=== PATIENT | female | born 1995 | race Caucasian/White ===

== ENCOUNTER 2016-10-19 08:29 | Day surgery (SDC) | payer MEDICAID ==
[2016-10-19] MEDS ORDERED: ONDANSETRON 4 MG/2 ML VIAL IVP ONE (09:02)
[2016-10-19] MEDS ORDERED: NS 1,000 ML IV ONE (09:02)
[2016-10-19] MEDS ORDERED: fentaNYL 100 MCG/2 ML INJ IVP ONE (09:02)
--- NOTE | 2016-10-19 09:05 | EDPHY ---
H & P Time Seen by Provider: 10/19/16 08:46 HPI/ROS: CHIEF COMPLAINT: Abdominal pain HISTORY OF PRESENT ILLNESS: Patient had some back pain yesterday but that is an ongoing problem for her and it did not seem out of the ordinary to her. She awakened at 4:00 a.m. with severe right lower quadrant abdominal pain associated with nausea but no vomiting. No vaginal or urinary symptoms. Does not radiate. Worse when she bends over to try and put her shoes on and off. Symptoms severe in the emergency department. She has never had abdominal surgery before. REVIEW OF SYSTEMS: Eye: no change in vision ENT: no sore throat Cardiac: no chest pain or syncope Pulmonary: no cough or SOB Abdomen: Little bit of diarrhea yesterday, see HPI Musculoskeletal: Exacerbation of her ongoing back pain yesterday but no weakness or numbness in extremities. Skin: no rash Neuro: no headache Constitutional: no fever : no urinary symptoms A comprehensive 10 point review of systems is otherwise negative aside from elements mentioned in the history of present illness. PAST MEDICAL HISTORY: Back pain as above Social history: Return from [facility] 1 month ago General Appearance: Alert and conversant, cooperative. Eyes: No scleral icterus. ENT, Mouth: Normal mucous membranes. Respiratory: Normal respiratory effort, breath sounds equal, lungs are clear to auscultation. Cardiovascular: Regular rate and rhythm. Gastrointestinal: Right lower quadrant tenderness with guarding. Bowel sounds present but decreased. Neurological: Alert and oriented x3. Normally conversant. Face symmetric, normal movement and sensation in all extremities. Skin: Warm and dry, no rashes. Musculoskeletal: No peripheral edema and no joint swelling. Psychiatric: Not agitated. Emergency Department course/MDM: Fentanyl 100 mcg IV and Zofran 4 mg IV, ultrasound to evaluate right ovary versus appendix. 1010: Positive ultrasound for appendicitis per Dr. Bryson; discussed with Dr. Olegario Johnson who will admit the patient. Results discussed with the patient at this time. IV Invanz 1 g. Smoking Status: Never smoked Constitutional: Initial Vital Signs Temperature (C) 36.6 C 10/19/16 08:46 Heart Rate 106 H 10/19/16 08:46 Respiratory Rate 18 10/19/16 08:46 Blood Pressure 130/9 H 10/19/16 08:46 O2 Sat (%) 96 10/19/16 08:46 O2 Delivery Mode Room Air Allergies/Adverse Reactions: No Known Allergies Allergy (Unverified 08/01/12 09:45) Home Medications: Medication Instructions Recorded Multivitamins [Multivitamin (*)] 1 each PO DAILY 10/19/16 Medical Decision Making - Diagnostics Imaging Results: Imaging Impressions Abdomen Ultrasound 10/19/16 09:03 Impression: Acute appendicitis. Findings and recommendations discussed with Tod Herrera at 10:00 a.m. on October 19, 2016. Final report concurs with initial preliminary interpretation. Differential Diagnosis: Differential considered including but not limited to ectopic , ovarian torsion, ovarian cyst, appendicitis. - Data Points Laboratory Results: Laboratory Results 10/19/16 08:55 10/19/16 08:55 10/19/16 10/19/16 10/19/16 09:03 08:55 08:55 WBC 15.68 10^3/uL H 10^3/uL (3.80-9.50) RBC 4.50 10^6/uL 10^6/uL (4.18-5.33) Hgb 15.5 g/dL g/dL (12.6-16.3) Hct 43.0 % % (38.0-47.0) MCV 95.6 fL fL (81.5-99.8) MCH 34.4 pg H pg (27.9-34.1) MCHC 36.0 g/dL g/dL (32.4-36.7) RDW 12.4 % % (11.5-15.2) Plt Count 226 10^3/uL 10^3/uL (150-400) MPV 8.7 fL fL (8.7-11.7) Neut % (Auto) 84.1 % H % (39.3-74.2) Lymph % (Auto) 8.9 % L % (15.0-45.0) [place] % (Auto) 5.8 % % (4.5-13.0) Eos % (Auto) 0.4 % L % (0.6-7.6) Baso % (Auto) 0.4 % % (0.3-1.7) Nucleat RBC Rel Count 0.0 % % (0.0-0.2) Absolute Neuts (auto) 13.17 10^3/uL H 10^3/uL (1.70-6.50) Absolute Lymphs (auto) 1.40 10^3/uL 10^3/uL (1.00-3.00) Absolute Monos (auto) 0.91 10^3/uL H 10^3/uL (0.30-0.80) Absolute Eos (auto) 0.06 10^3/uL 10^3/uL (0.03-0.40) Absolute Basos (auto) 0.07 10^3/uL 10^3/uL (0.02-0.10) Absolute Nucleated RBC 0.00 10^3/uL 10^3/uL (0-0.01) Immature Gran % 0.4 % % (0.0-1.1) Immature Gran # 0.07 10^3/uL 10^3/uL (0.00-0.10) Sodium 139 mEq/L mEq/L (134-144) Potassium 4.0 mEq/L mEq/L (3.5-5.2) Chloride 106 mEq/L mEq/L (97-110) Carbon Dioxide 18 mEq/l L mEq/l (22-31) Anion Gap 15 mEq/L mEq/L (8-16) BUN 13 mg/dL mg/dL (7-23) Creatinine 0.8 mg/dL mg/dL (0.6-1.0) Estimated GFR > 60 Glucose 98 mg/dL mg/dL (70-100) Calcium 10.2 mg/dL mg/dL (8.5-10.4) Beta HCG, Qual NEGATIVE Medications Given: Discontinued Medications Fentanyl (Sublimaze) 100 mcg IVP EDNOW ONE Stop: 10/19/16 09:03 Last Admin: 10/19/16 09:07 Dose: 100 mcg Fentanyl (Sublimaze) 50 - 100 mcg IVP Q5M PRN PRN Reason: PACU, Immediate Severe Pain Stop: 10/19/16 14:31 Last Admin: 10/19/16 14:43 Dose: 50 mcg Sodium Chloride (Ns) 1,000 mls @ 0 mls/hr IV EDNOW ONE; Wide Open PRN Reason: Protocol Stop: 10/19/16 09:03 Last Admin: 10/19/16 09:08 Dose: 1,000 mls Ertapenem 1 gm/ Sodium (Chloride) 100 mls @ 200 mls/hr IV EDNOW ONE PRN Reason: Protocol Stop: 10/19/16 10:44 Last Admin: 10/19/16 10:33 Dose: 100 mls Lactated Ringer's (Lr) 1,000 mls @ 0 mls/hr IV ONCE ONE PRN Reason: Per Protocol Stop: 10/19/16 11:21 Last Admin: 10/19/16 11:30 Dose: 1,000 mls Ondansetron HCl (Zofran) 4 mg IVP EDNOW ONE Stop: 10/19/16 09:03 Last Admin: 10/19/16 09:07 Dose: 4 mg Departure - Departure Disposition: [facility] Inpatient Acute Clinical Impression: Acute appendicitis Qualifiers: Acute appendicitis type: with localized peritonitis Qualified Code(s): K35.3 - Acute appendicitis with localized peritonitis Condition: Good
[2016-10-19 09:10] LABS: % IMMATURE GRANULYOCYTES 0.4 % (0.0-1.1); ABSOLUTE IMMATURE GRANULOCYTES 0.07 10^3/uL (0.00-0.10); ADD DIFF? NO; ADD MORPH? NO; ADD SCAN? NO; ATYPICAL LYMPHOCYTE FLAG 0 (0-99); FRAGMENT RBC FLAG 0 (0-99); HEMOGLOBIN 15.5 g/dL (12.6-16.3); LEFT SHIFT FLG 0 (0-99); LIPEMIA HEMOLYSIS FLAG 90 (0-99); MEAN CELL HEMOGLOBIN 34.4 pg (27.9-34.1); MEAN CELL VOLUME 95.6 fL (81.5-99.8); MEAN PLATELET VOLUME 8.7 fL (8.7-11.7); PLATELET CLUMPS FLAG 0 (0-99); PLATELET COUNT 226 10^3/uL (150-400); RED CELL DISTRIBUTION WIDTH 12.4 % (11.5-15.2)
[2016-10-19 09:26] LABS: ANION GAP 15 mEq/L (8-16); CALCIUM 10.2 mg/dL (8.5-10.4); CARBON DIOXIDE 18 mEq/l (22-31); CHLORIDE 106 mEq/L (97-110); CREATININE 0.8 mg/dL (0.6-1.0); GLOMERULAR FILTRATION RATE > 60; GLUCOSE 98 mg/dL (70-100); SODIUM 139 mEq/L (134-144)
[2016-10-19] MEDS ORDERED: ERTAPENEM 1 GM in NS 100 ML IV ONE (10:15)
[2016-10-19] MEDS ORDERED: LR 1,000 ML IV ONE (11:20)
--- NOTE | 2016-10-19 11:43 | PDANEPAE ---
ANE History of Present Illness acute appendicitis ANE Past Medical History - Cardiovascular History Hx Hypertension: No Hx Arrhythmias: No Hx Chest Pain: No Hx Coronary Artery / Peripheral Vascular Disease: No Hx CHF / Valvular Disease: No Hx Palpitations: No - Pulmonary History Hx COPD: No Hx Asthma/Reactive Airway Disease: No Hx Recent Upper Respiratory Infection: No Hx Oxygen in Use at Home: No Hx Sleep Apnea: No - Neurologic History Hx Cerebrovascular Accident: No Hx Seizures: No Hx Dementia: No - Endocrine History Hx Diabetes: No Hypothyroid: No Hyperthyroid: No Obesity: no - Renal History Hx Renal Disorders: No - Liver History Hx Hepatic Disorders: No - Cancer History Hx Cancer: No - Congenital Disorder History Hx Congenital Disorders: No - Chronic Pain History Chronic Pain: No ANE Patient History - Allergies Allergies/Adverse Reactions: No Known Allergies Allergy (Unverified 08/01/12 09:45) - Home Medications Home Medications: Multivitamins [Multivitamin (*)] 1 each PO DAILY 10/19/16 [Last Taken Unknown] - NPO status NPO Since - Liquids (Date): 10/19/16 NPO Since - Liquids (Time): 06:00 NPO Since - Solids (Date): 10/18/16 NPO Since - Solids (Time): 19:00 - Smoking Hx Smoking Status: Never smoked ANE Labs/Vital Signs - Labs Result Diagrams: 10/19/16 08:55 10/19/16 08:55 - Vital Signs Blood Pressure: 118/81 Heart Rate: 76 Respiratory Rate: 16 O2 Sat (%): 96 Height: 177.8 cm Weight: 63.503 kg ANE Anesthesia Plan Anesthesia Plan: general endotracheal anesthesia
--- NOTE | 2016-10-19 11:49 | PDHPUP ---
History & Physical Update H&P update statement: This history and physical update is based on an assessment of the patient which was completed after admission or registration (within 24 hours), but prior to the surgery/procedure. H&P update: H&P reviewed & patient examined, no change in patient's condition since H&P completed
--- NOTE | 2016-10-19 11:51 | PDGENHP ---
History & Physical Chief Complaint: APPENDICITIS History of Present Illness: 21-YEAR-OLD FEMALE WITH 12 HOURS OF ABDOMINAL PAIN AND CONSISTENT WITH APPENDICITIS. ULTRASOUND [place]IT[place] [id number]. RISKS AND OPTIONS FULLY DISCUSSED AND SHE IS ADMITTED AT THIS TIME FOR LAP APPY Pertinent Past, Social, Family History: PAST HISTORY INCLUDES BUNIONECTOMY. NO KNOWN ALLERGY. MEDICATIONS NONE. REVIEW OF SYSTEMS NEGATIVE ON A FULL 10 POINT REVIEW. FAMILY HISTORY IS NONCONTRIBUTORY Relevant Physical Exam: AFEBRILE HEALTHY 21-YEAR-OLD FEMALE. HEENT NONICTERIC WITHOUT ADENOPATHY OR ORAL LESIONS. CHEST CLEAR. CARDIAC EXAM REGULAR RHYTHM. ABDOMEN IS TENDER IN THE RIGHT LOWER QUADRANT WITH GUARDING AND REBOUND SLIGHT DISTENTION. EXTREMITIES ARE BENIGN Cardiorespiratory Assessment: IMPRESSION ACUTE APPENDICITIS. PLAN LAP APPY RISKS AND OPTIONS FULLY DISCUSSED
[2016-10-19] MEDS ORDERED: BUPIVACAINE 0.5% 30 ML SDV ONE (12:02)
[2016-10-19] MEDS ORDERED: fentaNYL 100 MCG/2 ML INJ ONE ×2 (12:32→14:31)
[2016-10-19] MEDS ORDERED: MIDAZOLAM 2 MG/2 ML VIAL ONE (12:32)
[2016-10-19] MEDS ORDERED: PROPOFOL/EMULSION 500 MG/50 ML BOTTLE IV ONE (12:33)
[2016-10-19] MEDS ORDERED: ONDANSETRON 4 MG/2 ML VIAL ONE (12:33)
[2016-10-19] MEDS ORDERED: KETOROLAC 30 MG/1 ML SDV ONE (12:34)
[2016-10-19] MEDS ORDERED: ROCURONIUM 50 MG/5 ML VIAL ONE (12:34)
[2016-10-19] MEDS ORDERED: DEXAMETHASONE 4 MG/ML VIAL ONE (12:34)
[2016-10-19] MEDS ORDERED: LIDOCAINE 2% 5 ML SDV ONE (12:35)
[2016-10-19] MEDS ORDERED: REMIFENTANIL HCL 1 MG VIAL ONE (12:38)
--- NOTE | 2016-10-19 12:54 | GHP ---
[f rep st] HISTORY AND PHYSICAL DATE OF ADMISSION: 10/19/2016 HISTORY OF PRESENT ILLNESS: A 21-year-old female who is admitted with right lower quadrant pain of approximately 8 hours' duration, associated with nausea but no vomiting. She was seen in the emerge ncy room. The pain woke her from sleep. The pain is well localized in the right lower quadrant. U ltrasound is positive for appendicitis. White count is 15,000 she is admitted at this time for lapa roscopic appendectomy. Risks and options have been fully discussed. She wishes to proceed. PAST MEDICAL HISTORY: Includes bunionectomy, no other major surgeries or hospitalizations or seriou s illnesses. REVIEW OF SYSTEMS: Negative on a full 10-point review of systems. She does not smoke and she is no t . MEDICATIONS: None. ALLERGIES: None. FAMILY HISTORY: Noncontributory. PHYSICAL EXAMINATION: GENERAL: An alert healthy 21-year-old female in no acute distress. She is a febrile. HEAD/NECK: Reveals no icterus, adenopathy or oral lesions. Neck is supple, no thyromegal y. CHEST: Clear and symmetric. CARDIAC: Regular rhythm without murmurs. ABDOMEN: Soft. She is quite tender in the right lower quadrant with rebound and guarding. She has positive bowel sounds and slight distention. No hernias. EXTREMITIES: Bilateral full pulses. IMPRESSION: Acute appendicitis. PLAN: Laparoscopic appendectomy. Risks and options fully discussed. She wishes to proceed. /[id number]/MODL
[2016-10-19] MEDS ORDERED: SUGAMMADEX SODIUM 200 MG/2 ML VIAL IVP ONE (13:12)
--- NOTE | 2016-10-19 13:16 | POSTOPPROG ---
Post Op Note Date of Operation: 10/19/16 Surgeon: Olegario Johnson [employer] Legal Assistant: YENI Anesthesiologist: THOMAS Anesthesia: GET(General Endotracheal) Pre-op Diagnosis: ACUTE APPE Post-op Diagnosis: SAME Indication: PAIN Procedure: LAP APPE Findings: ACUTE APPENDICITIS, NONINFLAMED Inf/Abcess present in the surg proc area at time of surgery?: Yes Depth: Organ Space EBL: Minimal Complications: 0 Specimen(s): APPENDIX
[2016-10-19] MEDS ORDERED: HYDROmorphONE/DILAUDID 1 MG/ML SYR IVP PRN ×3 (13:19→13:31)
[2016-10-19] MEDS ORDERED: OXYCODONE/APAP 5/325 TAB PO PRN (13:19)
[2016-10-19] MEDS ORDERED: ONDANSETRON 4 MG/2 ML VIAL IVP PRN (13:19)
[2016-10-19] MEDS ORDERED: D5W 1/2 NS W/ 20 KCl/L 1,000 ML IV SCH (13:30)
[2016-10-19] MEDS ORDERED: D5W LR 500 ML IV PRN (13:31)
[2016-10-19] MEDS ORDERED: PROMETHAZINE HCL 25 MG/ML INJ IVP PRN (13:31)
[2016-10-19] MEDS ORDERED: ACETAMINOPHEN 500 MG TAB PO PRN (13:31)
[2016-10-19] MEDS ORDERED: MEPERIDINE 25 MG/ML SYR IVP PRN (13:31)
[2016-10-19] MEDS ORDERED: NALOXONE HCL 0.4 MG/ML INJ IVP PRN (13:31)
[2016-10-19] MEDS ORDERED: fentaNYL 100 MCG/2 ML INJ IVP PRN (13:31)
[2016-10-19] MEDS ORDERED: HYDROCODONE/APAP 5/325 TAB PO PRN (13:31)
--- NOTE | 2016-10-19 13:33 | POSTANESTH ---
Post Anesthetic Evaluation Cardiovascular Status: Normal, Stable Respiratory Status: Normal, Stable Level of Consciousness/Mental Status: Can Participate in Eval Pain Control: Adequate, Prn Tx Ordered Nausea/Vomiting Control: Adequate, Prn Tx Ordered Complications Possibly Related to Anesthesia: None Noted
[2016-10-19 14:18] VITALS: RESP 16
[2016-10-19] MEDS: fentaNYL 100 MCG/2 ML INJ IVP PRN ×2 (14:32→14:43)
[2016-10-19 14:46] VITALS: PULSE 84; TEMP 97.7
[2016-10-19 15:57] VITALS: BP 113/75; O2SAT 98
[2016-10-19] MEDS ORDERED: KETOROLAC 15 MG/1 ML SDV IVP SCH (18:00)
--- NOTE | 2016-10-20 00:50 | GOP ---
[f rep st] OPERATIVE REPORT DATE OF OPERATION: 10/19/2016 SURGEON: Olegario Johnson MD PURCHASING MANAGER: Iliana Alex PA-C. ANESTHESIOLOGIST: Dr. Ba PREOPERATIVE DIAGNOSIS: Acute appendicitis POSTOPERATIVE DIAGNOSIS: Acute appendicitis PROCEDURE PERFORMED: laparoscopic appendectomy. FINDINGS: Acute suppurative, nonperforated appendicitis. DESCRIPTION OF PROCEDURE: The patient was taken to the operating room where she received satisfacto ry general endotracheal anesthesia by Dr. Ba, placed in a supine position, prepped and drap ed in usual sterile fashion. A periumbilical incision was made. A Veress needle was inserted. Pne umoperitoneum was established. Trocar was introduced. Laparoscope introduced. Good visualization was obtained. Two other trocars were placed in the lower abdomen under direct vision. The cecum wa s rotated medially. The appendix was visualized. It was freed up from lateral and retrocecal infla mmatory attachments. The appendix was folded on itself. It was elevated up. The mesoappendix was divided with the Harmonic Scalpel. The base of the appendix was skeletonized and divided with EndoG IA stapler. It was placed in a specimen bag and extracted through the upper midline port site. Hem ostasis was assured. The trocars were removed under direct vision. Trocar sites were closed with 0 Vicryl for the fascia, 4-0 Monocryl subcuticular stitch for the skin. All wounds were infiltrated with 0.5% Marcaine. There were no complications. Blood loss negligible. She was taken to the [facility] very room in good condition. /[id number]/MODL
[2016-10-20] MEDS ORDERED: ERTAPENEM 1 GM in NS 100 ML IV SCH (09:00)
[2016-10-20] MEDS ORDERED: MULTIVITAMINS 1 EACH TAB PO SCH (09:00)
== END 2016-10-19 13:56 | disposition home or self-care (01) ==
LOC: FSGY 10:15 → UNDOADMOB 10:15 → FSGY 13:56
PROVIDERS: ATTEND Surgery
PROC: 0DTJ4ZZ Resection of Appendix, Percutaneous Endoscopic Approach (ICD-10-PCS; principal; 2016-10-19 12:45)
DX: K35.80 Unspecified acute appendicitis (principal)
CPT/HCPCS: 96374; J1100; J1335; J1885; J2250; J2405; J2704; J3010